=== PATIENT | female | born 1930 | race Hispanic/Latino ===

== ENCOUNTER 2017-05-04 11:21 | Inpatient (IN) | payer MEDICARE ==
[~2017-05-04] VITALS: Ht 152.4 cm; Wt 60.8 kg
[2017-05-04] MEDS ORDERED: SODIUM POLYSTYRENE SULFONATE 15 GM/60 ML ML ONE ×2 (11:47→18:38)
[2017-05-04] MEDS ORDERED: FUROSEMIDE 10 MG/ML 4ML VIAL ONE (11:48)
[2017-05-04] MEDS ORDERED: INSULIN HUMULIN R 100 UNIT/ML 3ML ONE (11:48)
[2017-05-04] MEDS ORDERED: FUROSEMIDE 10 MG/ML 2ML VIAL ONE (11:48)
[2017-05-04] MEDS ORDERED: DEXTROSE 50%-WATER 50 ML DISP.SYRIN IV ONE (11:48)
[2017-05-04 11:58] LABS: BASOPHILS % (AUTO) 1.1 % (0.0-5.0); EOSINOPHILS % (AUTO) 5.4 % (0.0-8.0); LYMPHOCYTES % (AUTO) 43.4 % (21.0-51.0); MEAN CORPUSCULAR HEMOGLOBIN 35.5 pg (27.0-33.0); MEAN CORPUSCULAR HGB CONC 34.1 g/dL (32.0-36.0); MONOCYTES % (AUTO) 10.4 % (3.0-13.0); NEUTROPHILS % (AUTO) 39.7 % (40.0-77.0); PLATELET COUNT (AUTO) 95 K/uL (130-400); RED BLOOD CELL COUNT(AUTO) 3.17 MIL/uL (4.00-5.50); RED CELL DISTRIBUTION WIDTH 16.5 % (11.0-15.5); WHITE BLOOD COUNT (AUTO) 3.5 K/uL (4.8-10.8)
[2017-05-04 11:58] LABS: ABG BASE EXCESS -14.9 mmol/L (-2.0-3.0); ABG HCO3 11.1 mmol/L (21.0-28.0); ABG PCO2 27 mmHg (32-45)
[2017-05-04] MEDS ORDERED: SODIUM BICARB 50MEQ 50ML VIAL ONE (12:12)
[2017-05-04 12:17] LABS: INR 1.09 (0.85-1.15); PARTIAL THROMBOPLASTIN TIME 29.4 SEC (26.3-35.5); PROTHROMBIN TIME 11.4 SEC (9.6-11.6)
[2017-05-04 12:23] LABS: ALBUMIN 3.7 g/dL (3.5-5.0); BILIRUBIN,TOTAL 0.8 mg/dL (0.2-1.0); CREATINE KINASE MB 1.4 ng/mL (0.5-3.6); CREATININE 2.7 mg/dL (0.5-1.5); TOTAL PROTEIN, SERUM 7.6 g/dL (6.0-8.3)
[2017-05-04 12:25] LABS: POTASSIUM 7.4 mmol/L (3.5-5.1)
[2017-05-04 12:34] LABS: B-TYPE NATRIURETIC PEPTIDE 339 pg/mL (0-100)
[2017-05-04 13:34] LABS: APPEARANCE,URINE Clear (CLEAR); BILIRUBIN,URINE Negative (NEGATIVE); COLOR,URINE Yellow (YELLOW); GLUCOSE, URINE (UA) Negative (NEGATIVE); KETONES,URINE Negative (NEGATIVE); LEUKOCYTE ESTERASE ,URINE Trace (NEGATIVE); NITRATE,URINE Negative (NEGATIVE); OCCULT BLOOD,URINE Negative (NEGATIVE); PROTEIN,URINE Negative (NEGATIVE); UROBILINOGEN,URINE 0.2 mg/dL (0.2-1.0)
[2017-05-04 13:45] LABS: BACTERIA,URINE Few /HPF (None Seen); RBC,URINE 0-1 /HPF (0-1); WBC,URINE 0-1 /HPF (0-1)
[2017-05-04] MEDS: SODIUM CHLORIDE 0.9% 1000ML 1,000 ML IV SCH (15:00)
[2017-05-04] MEDS ORDERED: CEFTRIAXONE 1GM/D5W 50ML 50 ML IV SCH (15:00)
[2017-05-04] MEDS ORDERED: ONDANSETRON HCL 4 MG/2 ML VIAL ONE (21:00)
[2017-05-04] MEDS: SODIUM BICARBONATE 650 MG TAB PO SCH (21:00)
[2017-05-05] VITALS (7 sets, daily range): BP systolic 118–147; BP diastolic 51–64
[2017-05-05] MEDS: SODIUM CHLORIDE 0.9% 1000ML 1,000 ML IV SCH ×3 (04:20→22:17)
[2017-05-05] MEDS ORDERED: NITROGLYCERIN 0.4 MG SL TAB SL PRN (05:45)
[2017-05-05] MEDS ORDERED: LACTULOSE 20 GM/30 ML UDCUP PO PRN (05:45)
[2017-05-05] MEDS ORDERED: DiphenhydrAMINE HCL 50 MG/ML VIAL IVP PRN (05:45)
[2017-05-05] MEDS ORDERED: ACETAMINOPHEN 325 MG TAB PO PRN ×2 (05:45)
[2017-05-05] MEDS ORDERED: DIPHENHYDRAMINE HCL 25 MG CAPSULE PO PRN (05:45)
[2017-05-05] MEDS ORDERED: GUAIFENESIN SUGAR-FREE 100 MG/5 ML UDCUP PO PRN (05:45)
[2017-05-05] MEDS ORDERED: POTASSIUM CHLORIDE 20MEQ/100ML 100 ML IV PRN (05:45)
[2017-05-05] MEDS ORDERED: MAG HYDROX/AL HYDROX/SIMETH ES 30 ML SUSP UDCUP PO PRN (05:45)
[2017-05-05] MEDS ORDERED: ONDANSETRON HCL 4 MG/2 ML VIAL IVP PRN (05:45)
[2017-05-05] MEDS ORDERED: POTASSIUM CHLORIDE 20 MEQ ERTAB PO PRN (05:45)
[2017-05-05] MEDS ORDERED: LIDOCAINE HCL-MPF 1% 2ML VIAL IJ PRN (05:45)
[2017-05-05] MEDS ORDERED: ZOLPIDEM TARTRATE 5 MG TAB PO PRN (05:45)
[2017-05-05] MEDS ORDERED: CLONIDINE HCL 0.1 MG TABLET PO PRN (05:45)
[2017-05-05] MEDS ORDERED: POTASSIUM CHLORIDE 10% ELIXIR 20 MEQ/15 ML UDCUP PO PRN (05:45)
[2017-05-05] MEDS ORDERED: GUAIFENESIN-DM 200/20 MG 10 ML PO PRN (05:45)
[2017-05-05] MEDS: SODIUM POLYSTYRENE SULFONATE 15 GM/60 ML ML PO SCH ×3 (06:00→11:52)
[2017-05-05 06:21] LABS: HEMATOCRIT 30.1 % (36-48); MEAN CORPUSCULAR HEMOGLOBIN 36.1 pg (27.0-33.0); MEAN CORPUSCULAR HGB CONC 35.1 g/dL (32.0-36.0); MEAN CORPUSCULAR VOLUME 102.7 fL (79-99); PLATELET COUNT (AUTO) 89 K/uL (130-400); RED BLOOD CELL COUNT(AUTO) 2.93 MIL/uL (4.00-5.50); RED CELL DISTRIBUTION WIDTH 16.4 % (11.0-15.5); WHITE BLOOD COUNT (AUTO) 3.2 K/uL (4.8-10.8)
[2017-05-05 06:31] LABS: PHOSPHORUS 4.2 mg/dL (2.5-4.9); POTASSIUM 5.8 mmol/L (3.5-5.1)
[2017-05-05] MEDS: CEFTRIAXONE SODIUM 1 GM IVP SCH (06:34)
[2017-05-05 07:36] LABS: EOSINOPHILS % (MANUAL) 3 % (1-6); LYMPHOCYTES % (MANUAL) 34 % (22-44); MAN.DIFF COMMENT-IMPRESSION MANUAL DIFFERENTIAL; MONOCYTES % (MANUAL) 9 % (2-9); PLATELET MORPHOLOGY COMMENT DECREASED; SEGMENTED NEUTROPHILS % 54 % (40-70)
[2017-05-05] MEDS ORDERED: LOSA100T29 PO (07:40)
[2017-05-05] MEDS ORDERED: POTA-79 PO (07:40)
[2017-05-05] MEDS ORDERED: PIOG45TA17 PO (07:40)
[2017-05-05] MEDS ORDERED: BENZ-51 PO (07:40)
[2017-05-05] MEDS ORDERED: ONDA4TAB9 PO (07:40)
[2017-05-05] MEDS ORDERED: AMLO10TA2 PO (07:40)
[2017-05-05] MEDS ORDERED: FURO40TA5 PO (07:40)
[2017-05-05] MEDS ORDERED: LEVO100T12 PO (07:40)
[2017-05-05] MEDS ORDERED: OMEP40CA37 PO (07:40)
[2017-05-05] MEDS ORDERED: URSO250T11 PO (07:40)
[2017-05-05] MEDS ORDERED: SPIR50TA3 PO (07:40)
[2017-05-05] MEDS: SODIUM BICARBONATE 650 MG TAB PO SCH ×2 (09:01→22:15)
[2017-05-05] MEDS ORDERED: DOCUSATE SODIUM 100 MG CAP PO PRN (09:15)
[2017-05-05] MEDS: METOCLOPRAMIDE 5 MG TABLET PO SCH ×3 (11:51→22:15)
[2017-05-05] MEDS: INSULIN HUMULIN R 100 UNIT/ML 3ML SQ SCH (21:00)
[2017-05-06 03:18] VITALS: BP 119/57
[2017-05-06 04:48] LABS: HEMATOCRIT 27.5 % (36-48); MEAN CORPUSCULAR HEMOGLOBIN 35.2 pg (27.0-33.0); MEAN CORPUSCULAR HGB CONC 34.5 g/dL (32.0-36.0); MEAN CORPUSCULAR VOLUME 102.1 fL (79-99); NUCLEATED RED BLOOD CELLS 0.2 % (0.0-0.19); PLATELET COUNT (AUTO) 78 K/uL (130-400); RED CELL DISTRIBUTION WIDTH 16.5 % (11.0-15.5); WHITE BLOOD COUNT (AUTO) 2.8 K/uL (4.8-10.8)
[2017-05-06 05:17] LABS: CREATININE 1.6 mg/dL (0.5-1.5); POTASSIUM 5.2 mmol/L (3.5-5.1)
[2017-05-06 05:27] LABS: EOSINOPHILS % (MANUAL) 2 % (1-6); LYMPHOCYTES % (MANUAL) 32 % (22-44); MAN.DIFF COMMENT-IMPRESSION MANUAL DIFFERENTIAL; MONOCYTES % (MANUAL) 16 % (2-9); REACTIVE LYMPHOCYTES 2 % (0-0); SEGMENTED NEUTROPHILS % 48 % (40-70)
[2017-05-06 05:29] LABS: PLATELET MORPHOLOGY COMMENT DECREASED
[2017-05-06] MEDS: CEFTRIAXONE SODIUM 1 GM IVP SCH (06:49)
[2017-05-06] MEDS: INSULIN HUMULIN R 100 UNIT/ML 3ML SQ SCH ×2 (06:51→11:30)
[2017-05-06 07:00] VITALS: BP 127/50
[2017-05-06] MEDS ORDERED: SODIUM CHLORIDE 0.9% 1000ML 1,000 ML IV ONE (08:00)
[2017-05-06] MEDS: SODIUM BICARBONATE 650 MG TAB PO SCH (08:11)
[2017-05-06] MEDS: METOCLOPRAMIDE 5 MG TABLET PO SCH ×2 (08:14→13:33)
[2017-05-06 11:00] VITALS: BP 122/53
[2017-07-07] MEDS ORDERED: SPIR50TA3 PO (02:18)
== END 2017-05-06 16:20 | disposition home or self-care (01) | DRG 689 ==
LOC: EDH 11:21 → EDHIP 13:15 → 2DH 05-05 01:07
PROVIDERS: ADMIT Family Medicine; ATTEND Family Medicine
DX: N39.0 Urinary tract infection, site not specified (principal); N17.0 Acute kidney failure with tubular necrosis; E87.2 Acidosis; D69.6 Thrombocytopenia, unspecified; E11.22 Type 2 diabetes mellitus with diabetic chronic kidney disease; E83.52 Hypercalcemia; E87.5 Hyperkalemia; I12.9 Hypertensive chronic kidney disease with stage 1 through stage 4 chronic kidney disease, or unspecified chronic kidney disease; N18.9 Chronic kidney disease, unspecified; E03.9 Hypothyroidism, unspecified; E78.5 Hyperlipidemia, unspecified; E86.0 Dehydration; Z90.49 Acquired absence of other specified parts of digestive tract; Z83.3 Family history of diabetes mellitus; Z82.49 Family history of ischemic heart disease and other diseases of the circulatory system
CPT/HCPCS: 36415; 36600; 71045; 76770; 80048; 80053; 81001; 82330; 82435; 82550; 82553; 82803; 82947; 82948; 83605; 83880; 83970; 84100; 84132; 84165; 84295; 84484; 85007; 85018; 85025; 85027; 85610; 85730; 87088; 93005; 99291; A4218; J0696; J1815; J1940; J2405; J3490; J7030; J7070

== ENCOUNTER 2017-07-06 16:40 | Observation (INO) | payer MEDICARE ==
[~2017-07-06] VITALS: Ht 152.4 cm; Wt 67.4 kg
[~2017-07-06 16:40] MED LIST: AMLO10TA2 PO; BENZ-51 PO; FURO40TA5 PO; LEVO100T12 PO; LOSA100T29 PO; OMEP40CA37 PO; ONDA4TAB9 PO; PIOG45TA64 PO; SPIR50TA5 PO; URSO250T11 PO
[2017-07-06 17:09] LABS: BASOPHILS % (AUTO) 0.7 % (0.0-5.0); EOSINOPHILS % (AUTO) 3.1 % (0.0-8.0); HEMATOCRIT 23.7 % (36-48); MEAN CORPUSCULAR HEMOGLOBIN 35.4 pg (27.0-33.0); MEAN CORPUSCULAR HGB CONC 34.6 g/dL (32.0-36.0); MEAN CORPUSCULAR VOLUME 102.3 fL (79-99); MONOCYTES % (AUTO) 13.8 % (3.0-13.0); NEUTROPHILS % (AUTO) 50.4 % (40.0-77.0); PLATELET COUNT (AUTO) 91 K/uL (130-400); RED BLOOD CELL COUNT(AUTO) 2.32 MIL/uL (4.00-5.50); RED CELL DISTRIBUTION WIDTH 15.3 % (11.0-15.5); WHITE BLOOD COUNT (AUTO) 3.6 K/uL (4.8-10.8)
[2017-07-06 17:31] LABS: BILIRUBIN,TOTAL 0.8 mg/dL (0.2-1.0); CREATININE 3.5 mg/dL (0.5-1.5); POTASSIUM 5.1 mmol/L (3.5-5.1); TOTAL PROTEIN, SERUM 6.7 g/dL (6.0-8.3)
[2017-07-06] MEDS ORDERED: SODIUM CHLORIDE 0.9% 1000ML 1,000 ML IV ONE (17:39)
[2017-07-06 17:44] LABS: THYROID STIMULATING HORMONE 1.91 uIU/mL (0.36-3.74)
[2017-07-06 18:07] LABS: APPEARANCE,URINE Clear (CLEAR); BILIRUBIN,URINE Negative (NEGATIVE); COLOR,URINE Yellow (YELLOW); GLUCOSE, URINE (UA) Negative (NEGATIVE); KETONES,URINE Negative (NEGATIVE); LEUKOCYTE ESTERASE ,URINE Negative (NEGATIVE); NITRATE,URINE Negative (NEGATIVE); OCCULT BLOOD,URINE Negative (NEGATIVE); PROTEIN,URINE Negative (NEGATIVE); UROBILINOGEN,URINE 0.2 mg/dL (0.2-1.0)
[2017-07-06] MEDS ORDERED: ZOSYN 3.375GM+NS 50ML 50 ML IV ONE (20:07)
[2017-07-06 20:31] VITALS: BP 112/48
[2017-07-06 23:00] VITALS: BP 115/48
[2017-07-07] VITALS (8 sets, daily range): BP systolic 92–128; BP diastolic 34–50
[2017-07-07] MEDS ORDERED: SODIUM CHLORIDE 0.9% 1000ML 1,000 ML IV ONE ×2 (01:00→18:45)
[2017-07-07] MEDS ORDERED: URSO250T11 PO (02:18)
[2017-07-07] MEDS ORDERED: IRON1CAP28 PO (02:18)
[2017-07-07] MEDS ORDERED: ACET-2743 PO (02:18)
[2017-07-07] MEDS ORDERED: ALLO100T PO (02:18)
[2017-07-07] MEDS ORDERED: LEVO500T89 PO (02:18)
[2017-07-07] MEDS ORDERED: SPIR50TA5 PO (02:18)
[2017-07-07] MEDS ORDERED: CHOL50004 PO (02:18)
[2017-07-07] MEDS ORDERED: ACETAMINOPHEN EXTRA STRENGTH 500 MG TABLET PO PRN (02:30)
[2017-07-07 04:04] LABS: HEMATOCRIT 21.8 % (36-48); MEAN CORPUSCULAR HEMOGLOBIN 34.6 pg (27.0-33.0); MEAN CORPUSCULAR HGB CONC 33.9 g/dL (32.0-36.0); MEAN CORPUSCULAR VOLUME 102.1 fL (79-99); PLATELET COUNT (AUTO) 75 K/uL (130-400); RED BLOOD CELL COUNT(AUTO) 2.13 MIL/uL (4.00-5.50); RED CELL DISTRIBUTION WIDTH 14.8 % (11.0-15.5); WHITE BLOOD COUNT (AUTO) 2.5 K/uL (4.8-10.8)
[2017-07-07 04:20] LABS: ALBUMIN 2.6 g/dL (3.5-5.0); BILIRUBIN,TOTAL 0.7 mg/dL (0.2-1.0); CREATININE 2.9 mg/dL (0.5-1.5); POTASSIUM 5.3 mmol/L (3.5-5.1); TOTAL PROTEIN, SERUM 5.7 g/dL (6.0-8.3)
[2017-07-07] MEDS: FUROSEMIDE 40 MG TABLET PO SCH ×2 (08:12→21:21)
[2017-07-07] MEDS: PANTOPRAZOLE SODIUM 40 MG TABLET.DR PO SCH (08:12)
[2017-07-07] MEDS: LEVOTHYROXINE 100 MCG TABLET PO SCH (08:13)
[2017-07-07] MEDS: AMLODIPINE BESYLATE 5 MG TAB PO SCH (08:13)
[2017-07-07] MEDS: SPIRONOLACTONE 25 MG TAB PO SCH (08:13)
[2017-07-07] MEDS: LOSARTAN 100 MG TABLET PO SCH (08:13)
[2017-07-07] MEDS: PIOGLITAZONE HCL 15 MG TAB PO SCH (08:13)
[2017-07-07] MEDS: FOLIC ACID/VITAMIN B COMP W-C 1 MG CAPSULE PO SCH (08:18)
[2017-07-07] MEDS: URSODIOL 250 MG PO SCH ×2 (08:19→21:23)
[2017-07-07] MEDS: ZOSYN 3.375GM+NS 50ML 50 ML IV SCH ×2 (08:19→21:23)
[2017-07-07] MEDS: CHOLECALCIFEROL 5000 UNIT PO SCH (08:19)
[2017-07-07] MEDS ORDERED: ALLOPURINOL 100 MG TABLET PO SCH (21:00)
[2017-07-08 03:00] VITALS: BP 96/51
[2017-07-08] MEDS: ZOSYN 3.375GM+NS 50ML 50 ML IV SCH (08:00)
[2017-07-08 08:13] VITALS: BP 120/46
[2017-07-08] MEDS: URSODIOL 250 MG PO SCH (09:00)
[2017-07-08] MEDS: CHOLECALCIFEROL 5000 UNIT PO SCH (09:00)
[2017-07-08] MEDS: PANTOPRAZOLE SODIUM 40 MG TABLET.DR PO SCH (09:01)
[2017-07-08] MEDS: PIOGLITAZONE HCL 15 MG TAB PO SCH (09:01)
[2017-07-08] MEDS: LEVOTHYROXINE 100 MCG TABLET PO SCH (09:01)
[2017-07-08] MEDS: FOLIC ACID/VITAMIN B COMP W-C 1 MG CAPSULE PO SCH (09:02)
[2017-07-08] MEDS: SPIRONOLACTONE 25 MG TAB PO SCH (09:02)
[2017-07-08] MEDS: LOSARTAN 100 MG TABLET PO SCH (09:02)
[2017-07-08] MEDS: AMLODIPINE BESYLATE 5 MG TAB PO SCH (09:02)
[2017-07-08] MEDS: FUROSEMIDE 40 MG TABLET PO SCH (09:02)
== END 2017-07-08 09:10 | disposition home or self-care (01) ==
LOC: EDH 16:40 → EDHIP 18:24 → 3BH 20:05
PROVIDERS: ADMIT Internal Medicine; ATTEND Internal Medicine
DX: I95.9 Hypotension, unspecified (principal); R79.89 Other specified abnormal findings of blood chemistry; E11.9 Type 2 diabetes mellitus without complications; I11.0 Hypertensive heart disease with heart failure; I50.9 Heart failure, unspecified; I25.10 Atherosclerotic heart disease of native coronary artery without angina pectoris; D61.818 Other pancytopenia; Z51.5 Encounter for palliative care
CPT/HCPCS: 36415 ×2; 71045; 80053 ×2; 81003; 82270; 82550; 82948 ×6; 83605; 83880; 84443; 84484; 85025; 85027; 93005; 96361; 96365; 96366 ×2; 99285; A4600; G0378 ×39; J2543 ×4; J7030 ×4